=== PATIENT | female | born 1945 | race Caucasian/White ===

== ENCOUNTER 2016-09-23 11:43 | Observation (INO) ==
[2016-09-23] MEDS ORDERED: Ondansetron 4 MG/2 ML VIAL IVP PRN (14:22)
[2016-09-23] MEDS ORDERED: Polyethylene Glycol 3350 255 GM POWDER PO ONE (14:28)
[2016-09-23] MEDS ORDERED: 0.9 % Sodium Chloride 1,000 ML IVC SCH (14:30)
[2016-09-23] MEDS ORDERED: *HR* Dextrose 50 % in Water (Syg) 50 ML SYRINGE IVP PRN (14:30)
[2016-09-23] MEDS ORDERED: D5% in Water 1,000 ML IVC PRN (14:30)
[2016-09-23] MEDS ORDERED: Dextrose Gel 15 GM PO PRN ×2 (14:30)
[2016-09-23 15:17] LABS: Basophils # 0.1 K/mcL (0.0-0.2); Basophils % 0.6 %; Eosinophils # 0.3 K/mcL (0.0-0.6); Eosinophils % 2.3 %; Hematocrit 42.5 % (35.3-44.9); Hemoglobin 13.7 g/dL (11.5-15.4); INR 1.1; Immature Granulocytes % 0.7 % (0-4); Lymphocytes # 3.9 K/mcL (0.6-4.6); Lymphocytes % 32.3 %; Mean Corpuscular HGB Conc 32.2 g/dL (31.6-35.5); Mean Corpuscular Volume 89.9 fL (83.0-100.0); Mean Platelet Volume 9.8 fL (9.4-12.4); Monocytes # 0.9 K/mcL (0.0-1.3); Monocytes % 7.5 %; Neutrophils # 6.9 K/mcL (1.6-8.9); Platelet Count 381 K/mcL (140-400); Prothrombin Time 11.7 Seconds (9.4-12.1); Red Blood Count 4.73 M/mcL (3.82-4.97); Red Cell Distribution Width 14.8 % (11.5-14.5); Segmented Neutrophils % 56.6 %
[2016-09-23 15:24] LABS: BUN/Creatinine Ratio 16 (6-26); Blood Urea Nitrogen 17 mg/dL (7-20); Calcium 8.1 mg/dL (8.6-10.8); Carbon Dioxide 24 mEq/L (19-29); Chloride 102 mEq/L (98-109); Glucose 54 mg/dL (70-99); Osmolality,Calculated 283 (280-300); Potassium 3.8 mEq/L (3.5-4.5); Sodium 137 mEq/L (136-145); eGFR For African Americans > 60 (> 60); eGFR For Non-African Americans 52 (> 60)
--- NOTE | 2016-09-23 16:19 | General Surg History&Physical ---
Date of Encounter: 09/23/16 Time of Encounter: 16:17 Assessment and Plan (1) History of colon polyps Current Visit: Yes Status: Acute The assessment and plan as outlined above was discussed with the patient and/or family members who expressed understanding and agreement. All questions were answered. Plan for colonoscopy 09/24/[address] Wyman Clear liquids today NPO after midnight IV fluids Bowel prep with Miralax and Gatorade Patient requires inpatient admission due to multiple comorbidities and inability to complete colon prep at home History of Present Illness Chief complaint: History of colon polyps HPI: Ms. Pradhan is a 71 year old female who was seen and evaluated by Dr. Wyman in the outpatient surgical office. She had a colonoscopy 5 years ago and did have polyps removed at that time. She describes her abdominal pain as a "gassy discomfort" for many years. She denies any diarrhea of constipation. She typically has a bowel movement 1-2 times per day without rectal bleeding. Denies any weight loss or changes in appetite. Past Med Surg Social Fam HX - Past Medical History Source: patient, old records reviewed Medical history: arthritis, cancer, CHF, diabetes, fibromyalgia, GERD, hyperlipidemia, hypertension, thyroid disease, other Psychiatric history: depression - Past Surgical History Surgical History: appendectomy, cancer surgery, cataract, cholecystectomy, orthopedic, other (Carpel tunnel release left wrist, achilles tendon repair), thyroidectomy (right thyroid lobectomy), other (bladder surgery with ureteral polyp, tubal ligation, colonoscopy with polypectomy, heart cath.) - Social History Smoking Status: Former smoker Smokeless Tobacco Status: No Alcohol use: none Drug use: none - Family History Mother Adopted: No Family Member Ethnicity: Non- Living Status: Age at : 89 Cause of : complications from an RI Hx Family Cardiac Disorders: Yes Hx Family Respiratory Disorders: No Hx Family Cancer: No Hx Family GI Disorders: Yes Hx Family Genitourinary Disorders: No Hx Family Endocrine Disorder: Yes Hx Family Musculoskeletal Disorders: Yes (arthritis) Hx Family Neuromuscular Disorders: No Hx Family Neurologic Disorders: No Hx Family HEENT Disorders: No Hx Family Autoimmune Disorders: No Hx Family Reproductive Disorders: No Hx Family Psychosocial Disorders: No Hx Family Medical Disorders: No Medications and Allergies Cholecalciferol (D-3) [Vitamin D] 1,000 unit PO DAILY 09/23/16 [History] Dexlansoprazole [Dexilant] 60 mg PO DAILY 09/23/16 [History] Duloxetine [Cymbalta] 30 mg PO DAILY 09/23/16 [History] Fenofibrate Nanocrystallized [Tricor] 145 mg PO DAILY 09/23/16 [History] Folic Acid 0.8 mg PO DAILY 09/23/16 [History] Furosemide [Lasix] 40 mg PO DAILY 09/23/16 [History] Gabapentin [Neurontin] 600 mg PO TID 09/23/16 [History] GlipiZIDE [Glipizide] 10 mg PO DAILY 09/23/16 [History] Insulin Glargine,Hum.rec.anlog [Lantus Solostar] 0 unit SQ AD 09/23/16 [History] Levothyroxine [Synthroid] 175 mcg PO DAILY 09/23/16 [History] Losartan Potassium [Cozaar] 25 mg PO DAILY 09/23/16 [History] Meloxicam 7.5 mg PO BID 09/23/16 [History] Methocarbamol [Robaxin] 500 mg PO Q4H PRN 09/23/16 [History] Methotrexate 7.5 mg IJ QWEEK 09/23/16 [History] Metoprolol XL (24 HR) Succ [Toprol XL] 25 mg PO DAILY 09/23/16 [History] Nitroglycerin [Nitrostat] 0.4 mg SL AD PRN 09/23/16 [History] Pantoprazole Sodium 40 mg PO DAILY 09/23/16 [History] Potassium Chloride [Klor-Con 10] 10 meq PO DAILY 09/23/16 [History] Secukinumab [Cosentyx Syringe] 150 mg SQ QMONTH 09/23/16 [History] Silver Sulfadiazine [Silvadene] 1 appl TP DAILY 09/23/16 [History] Tizanidine HCl 4 mg PO TID PRN 09/23/16 [History] Venlafaxine [Effexor] 75 mg PO DAILY 09/23/16 [History] Vitamin E 100 unit PO DAILY 09/23/16 [History] Allergies acetaminophen [From Darvocet-N 100] Allergy (Mild, Verified 11/27/15 13:16) AMS propoxyphene [From Darvocet-N 100] Allergy (Mild, Verified 11/27/15 13:16) AMS pentazocine [From Talwin] Allergy (Verified 11/27/15 13:16) Headache hydrocodone [From Vicodin] Adverse Reaction (Mild, Verified 11/27/15 13:16) Headache Review of Systems All systems PM: reviewed and no additional remarkable complaints except as stated All systems PM: A 10-system review of systems was performed and is negative for pertinent findings except as documented above in the HPI. General Surgery Exam Initial Vital Signs Temp Pulse Resp BP Pulse Ox 97.9 F 99 18 145/85 95 09/23/16 15:49 09/23/16 15:49 09/23/16 15:49 09/23/16 15:49 09/23/16 15:49 - General physical appearance well developed, well nourished, no distress, chronically ill, obese - Eyes normal ocular movement - ENT normal mucosa, atraumatic, normocephalic - Neck trachea midline - Respiratory normal respiratory effort, clear to auscultation - Cardiovascular Cardiovascular exam: Present: RRR - Abdomen Abdomen general surgery: Present: bowel sounds present, soft, non tender - Integumentary Integumentary general surgery: Present: warm and dry - Neurologic Present: CN 2-12 grossly intact - Psychiatric Psychiatric general surgery: Present: A&Ox3 Results - Labs 09/23/16 14:50 09/23/16 14:50 Abnormal lab results WBC 12.1 K/mcL (4.3-11.1) H 09/23/16 14:50 RDW 14.8 % (11.5-14.5) H 09/23/16 14:50 Est GFR (Non-Af Amer) 52 (> 60) L 09/23/16 14:50 Glucose 54 mg/dL (70-99) L 09/23/16 14:50 Calcium 8.1 mg/dL (8.6-10.8) L 09/23/16 14:50 Diabetes panel 09/23/16 Range/Units 14:50 Sodium 137 (136-145) mEq/L Potassium 3.8 (3.5-4.5) mEq/L Chloride 102 (98-109) mEq/L Carbon Dioxide 24 (19-29) mEq/L BUN 17 (7-20) mg/dL Creatinine 1.05 (0.57-1.11) mg/dL Glucose 54 L (70-99) mg/dL Calcium 8.1 L (8.6-10.8) mg/dL Calcium panel 09/23/16 Range/Units 14:50 Calcium 8.1 L (8.6-10.8) mg/dL Pituitary panel 09/23/16 Range/Units 14:50 Sodium 137 (136-145) mEq/L Potassium 3.8 (3.5-4.5) mEq/L Chloride 102 (98-109) mEq/L Carbon Dioxide 24 (19-29) mEq/L BUN 17 (7-20) mg/dL Creatinine 1.05 (0.57-1.11) mg/dL Glucose 54 L (70-99) mg/dL Calcium 8.1 L (8.6-10.8) mg/dL Adrenal panel 09/23/16 Range/Units 14:50 Sodium 137 (136-145) mEq/L Potassium 3.8 (3.5-4.5) mEq/L Chloride 102 (98-109) mEq/L Carbon Dioxide 24 (19-29) mEq/L BUN 17 (7-20) mg/dL Creatinine 1.05 (0.57-1.11) mg/dL Glucose 54 L (70-99) mg/dL Calcium 8.1 L (8.6-10.8) mg/dL All other labs normal. - Attending Attestation I examined this patient and my medical decision-making was reviewed with the ALUM OPERATOR/PA/Advanced Practice Nurse/Resident Physician. I agree with the documented findings, disposition and treatment plan as described except to the extent set forth below.
[2016-09-23] MEDS: Insulin LISPRO 300 UNITS/3 ML VIAL SQ SCH (16:30)
[2016-09-23] MEDS ORDERED: Insulin LISPRO 300 UNITS/3 ML VIAL SQ SCH (21:00)
[2016-09-23] MEDS ORDERED: *HR* OxyCODONE/APAP 10/325 TABLET PO PRN (22:04)
[2016-09-24] MEDS: Insulin LISPRO 300 UNITS/3 ML VIAL SQ SCH ×2 (07:48→12:04)
[2016-09-24] MEDS ORDERED: Metoprolol XL (24 HR) Succ 25 MG TAB.ER.24H PO SCH (09:00)
[2016-09-24] MEDS ORDERED: Venlafaxine XR (24 HR) 75 MG CAP.ER.24H PO SCH (09:00)
--- NOTE | 2016-09-24 13:27 | Anesthesia Evaluation PreOp ---
Date of Encounter: 09/24/16 Time of Encounter: 13:25 - Past History Planned Operation: Colonoscopy Cardiac History: CHF (tx w/ Lasix), HTN (maintained on Cozzaar, Metoprolol), Hyperlipidemia (maintained on FenoFibrate) Pulmonary History: Former smoker [employer] History: Other (Fibromyalgia maintained on Gabapenintin. Anxiety/Depression maintained on Cymbalta, Effexory) Other Medical History: Diabetes Type II (maintained on Glipizide, Insulin), Thyroid (maintained on Levothyroxune), GERD (IBS tx w/ Dexilant, Pantoprazole), Other (MO/BMI - 53. RA maintianed on Methotrexate) Anesthesia History: No Prior Anesthetic Complications, Past Anesthesia (Shireen, Cancer surgery, Cataracts, CTR, Achilles tendon repair, R-thyroid lobectomy, Bladder surgeruy, BTL, Colonsocopy) Alcohol Use: none Drug use: none Medications and Allergies Cholecalciferol (D-3) [Vitamin D] 1,000 unit PO DAILY 09/23/16 [History] Dexlansoprazole [Dexilant] 60 mg PO DAILY 09/23/16 [History] Duloxetine [Cymbalta] 30 mg PO DAILY 09/23/16 [History] Fenofibrate Nanocrystallized [Tricor] 145 mg PO DAILY 09/23/16 [History] Folic Acid 0.8 mg PO DAILY 09/23/16 [History] Furosemide [Lasix] 40 mg PO DAILY 09/23/16 [History] Gabapentin [Neurontin] 600 mg PO TID 09/23/16 [History] GlipiZIDE [Glipizide] 10 mg PO DAILY 09/23/16 [History] Insulin Glargine,Hum.rec.anlog [Lantus Solostar] 0 unit SQ AD 09/23/16 [History] Levothyroxine [Synthroid] 175 mcg PO DAILY 09/23/16 [History] Losartan Potassium [Cozaar] 25 mg PO DAILY 09/23/16 [History] Meloxicam 7.5 mg PO BID 09/23/16 [History] Methocarbamol [Robaxin] 500 mg PO Q4H PRN 09/23/16 [History] Methotrexate 7.5 mg IJ QWEEK 09/23/16 [History] Metoprolol XL (24 HR) Succ [Toprol XL] 25 mg PO DAILY 09/23/16 [History] Nitroglycerin [Nitrostat] 0.4 mg SL AD PRN 09/23/16 [History] Pantoprazole Sodium 40 mg PO DAILY 09/23/16 [History] Potassium Chloride [Klor-Con 10] 10 meq PO DAILY 09/23/16 [History] Secukinumab [Cosentyx Syringe] 150 mg SQ QMONTH 09/23/16 [History] Silver Sulfadiazine [Silvadene] 1 appl TP DAILY 09/23/16 [History] Tizanidine HCl 4 mg PO TID PRN 09/23/16 [History] Venlafaxine [Effexor] 75 mg PO DAILY 09/23/16 [History] Vitamin E 100 unit PO DAILY 09/23/16 [History] Allergies acetaminophen [From Darvocet-N 100] Allergy (Mild, Verified 11/27/15 13:16) AMS propoxyphene [From Darvocet-N 100] Allergy (Mild, Verified 11/27/15 13:16) AMS pentazocine [From Talwin] Allergy (Verified 11/27/15 13:16) Headache hydrocodone [From Vicodin] Adverse Reaction (Mild, Verified 11/27/15 13:16) Headache - Meds/Allergy Pre-op Review Medications Reviewed: Yes Allergies Reviewed: Yes Beta Blockers on Current Med List: Yes (Metoprolol) If Beta Blockers taken, Date/Time (Last Dose taken): 09/24/16 @ 0915 Anesthesia Results - Labs 09/23/16 14:50 09/23/16 14:50 Laboratory Tests 09/23/16 09/23/16 14:50 14:50 PT 11.7 INR 1.1 Est GFR (Non-Af Amer) 52 L Laboratory Results Anesthesia Exam Vital Signs Temp Pulse Resp BP Pulse Ox 09/24/16 11:34 98.2 F 86 16 116/80 95 09/24/16 07:13 98.2 F 97 16 140/77 92 09/24/16 05:04 97.7 F 54 16 132/74 98 09/24/16 04:40 98.7 F 96 16 118/59 92 09/24/16 01:43 98.1 F 94 16 116/64 92 09/23/16 21:02 98.3 F 93 16 106/69 93 09/23/16 15:49 97.9 F 99 18 145/85 95 Intake and Output 09/23/16 09/24/16 09/24/16 23:59 07:59 15:59 Intake Total 120 / 120 Balance 120 / 120 Intake: Oral 120 / 120 Other: Meal Dinner Percent of Meal Consumed 10% # Bowel Movements 1 Blood Glucose* 177 127 102 Vital Signs Intake and Output - HEENT Pupil (Motor): Pupils equal, EOMI Mallampati: II Teeth: Edentulous Oral Opening: Greater than 3 - [employer] LOC: Oriented [employer] Motor: Normal RUE, Normal LUE, Normal RLE, Normal LLE, Normal Face [employer] Sensory: Normal: RUE, LUE, RLE, LLE, Face - Cardiac Rhythm: Regular Murmur: None - Pulmonary Breath Sounds: bilateral Clear Respiratory Effort: Symmetrical Anesthesia Assess/Plan ASA Score: 4 (Super MO/BMI = 53, HTN, Chol, DM) Modified Rudolph Scale for Level of Consciousness: Cooperative, oriented, and tranquil Anesthetic Plan: MAC Autologous Blood: Yes Monitoring Plan: Standard Monitors Recovery Plan: Other Anes Supervising Prov Stmt: Pt seen/evaluated, VSSA dn pt ahs met pedro pablo fot discharge to home. Reji Hall MD
--- NOTE | 2016-09-24 14:41 | Event Note ---
Date of Encounter: 09/24/16 Time of Encounter: 14:40 Colonoscopy performed. Polyp noted in the rectum and hepatic flexure. Removed. Will discharge home and contact patient once biopsy result returns.
[2016-09-24 15:10] VITALS: BP 146/79
== END 2016-09-24 16:06 | disposition home or self-care (01) ==
LOC: SAMDAY 11:43 → 3NENU 11:43
PROVIDERS: ADMIT Surgery; ATTEND Surgery

== ENCOUNTER 2020-12-19 22:55 | Inpatient (IN) ==
[2020-12-20] MEDS ORDERED: Ondansetron ODT 4 MG TAB.RAPDIS SL PRN (01:17)
[2020-12-20] MEDS ORDERED: Naloxone 0.4 MG/ML INJ IVP PRN (01:17)
[2020-12-20] MEDS ORDERED: Ipratropium/Albuterol Neb 3 ML IH PRN (01:20)
[2020-12-20 01:45] LABS: Basophils # 0.1 K/mcL (0.0-0.2); Basophils % 0.3 %; Eosinophils % 0.1 %; Hematocrit 41.8 % (35.3-44.9); Immature Granulocytes % 0.4 % (0-4); Lymphocytes # 1.6 K/mcL (0.6-4.6); Lymphocytes % 10.2 %; Mean Corpuscular HGB Conc 31.1 g/dL (31.6-35.5); Mean Corpuscular Hemoglobin 24.5 pg (28.0-33.3); Mean Corpuscular Volume 78.9 fL (83.0-100.0); Mean Platelet Volume 10.4 fL (9.4-12.4); Monocytes # 0.6 K/mcL (0.0-1.3); Monocytes % 3.8 %; Neutrophils # 13.4 K/mcL (1.6-8.9); Platelet Count 310 K/mcL (140-400); Red Cell Distribution Width 16.1 % (11.5-14.5); Segmented Neutrophils % 85.2 %; White Blood Count 15.7 K/mcL (4.3-11.1)
[2020-12-20 01:51] LABS: INR 1.2; Prothrombin Time 13.7 Seconds (9.4-12.1)
[2020-12-20] MEDS: 0.9 % Sodium Chloride 1,000 ML IVC SCH ×2 (01:55→12:20)
[2020-12-20 02:05] LABS: Alanine Aminotransferase 11 Units/L (7-52); Albumin 3.6 g/dL (3.5-5.7); Albumin/Globulin Ratio 1.1 (1.1-2.2); Alkaline Phosphatase 115 Units/L (34-104); Aspartate Amino Transferase 14 Units/L (13-39); BUN/Creatinine Ratio 13 (6-26); Bilirubin,Total 0.5 mg/dL (0.3-1.0); Blood Urea Nitrogen 14 mg/dL (8-23); Calcium 7.9 mg/dL (8.6-10.3); Carbon Dioxide 27 mEq/L (23-29); Chloride 99 mEq/L (98-107); Globulin 3.3 g/dL (2.4-3.5); Glucose 178 mg/dL (70-105); Magnesium 1.8 mg/dL (1.6-2.6); Osmolality,Calculated 287 (280-300); Potassium 3.6 mEq/L (3.5-5.1); Sodium 136 mEq/L (136-145); Total Protein 6.9 g/dL (6.4-8.9); eGFR For African Americans > 60 (> 60); eGFR For Non-African Americans 50 (> 60)
[2020-12-20 02:18] LABS: Thyroid Stimulating Hormone 2.908 mcIU/mL (0.340-5.600)
[2020-12-20] MEDS ORDERED: *HR* Dextrose 50 % in Water (Vial) 50 ML VIAL IVP PRN (02:50)
[2020-12-20] MEDS ORDERED: D5% in Water 1,000 ML IVC PRN (02:50)
[2020-12-20] MEDS ORDERED: Dextrose Gel 15 GM/37.5 ML TUBE PO PRN ×2 (02:50)
[2020-12-20 03:41] LABS: Bacteria,Urine Many per hpf (None-Few); Bilirubin,Urine Negative (Negative); Blood,Urine Large (Negative); Clarity,Urine Clear (Clear); Color,Urine Yellow (Yellow); Glucose,Urine (UA) Normal (Normal); Ketones,Urine Trace mg/dL (Negative); Leukocyte Esterase,Urine Moderate (Negative); Mucus,Urine Many per lpf (None-Few); Nitrite,Urine Positive (Negative); Protein,Urine 100 mg/dL (Neg-Trace); RBC,Urine 50-100 per hpf (0-3); Specific Gravity,Urine > 1.030 (1.010-1.025); Squamous Epithelial Cell,Urine Few per hpf (None-Few); Urobilinogen,Urine Normal (Normal); WBC,Urine TNTC per hpf (0-3)
[2020-12-20] MEDS: Insulin LISPRO 300 UNITS/3 ML VIAL SUBQ SCH ×4 (04:06→17:40)
[2020-12-20] MEDS ORDERED: CefTRIAXone 1,000 MG VIAL ONE (07:39)
[2020-12-20] MEDS: cefTRIAXone 1,000 MG in 0.9 % Sodium Chloride Mini Bag 100 ML IVPB SCH (07:41)
[2020-12-20] MEDS: *HR* Enoxaparin 40 MG/0.4 ML SYRINGE SQ SCH (07:42)
[2020-12-21 02:36] LABS: Basophils # 0.1 K/mcL (0.0-0.2); Basophils % 0.7 %; Eosinophils # 0.4 K/mcL (0.0-0.6); Eosinophils % 3.5 %; Hematocrit 37.3 % (35.3-44.9); Hemoglobin 11.5 g/dL (11.5-15.4); Immature Granulocytes % 0.2 % (0-4); Lymphocytes # 3.2 K/mcL (0.6-4.6); Lymphocytes % 28.4 %; Mean Corpuscular HGB Conc 30.8 g/dL (31.6-35.5); Mean Corpuscular Hemoglobin 25.2 pg (28.0-33.3); Mean Corpuscular Volume 81.8 fL (83.0-100.0); Mean Platelet Volume 10.7 fL (9.4-12.4); Monocytes # 0.9 K/mcL (0.0-1.3); Monocytes % 8.5 %; Neutrophils # 6.5 K/mcL (1.6-8.9); Platelet Count 258 K/mcL (140-400); Red Blood Count 4.56 M/mcL (3.82-4.97); Red Cell Distribution Width 16.9 % (11.5-14.5); Segmented Neutrophils % 58.7 %; White Blood Count 11.1 K/mcL (4.3-11.1)
[2020-12-21 02:57] LABS: BUN/Creatinine Ratio 15 (6-26); Blood Urea Nitrogen 14 mg/dL (8-23); Calcium 7.2 mg/dL (8.6-10.3); Carbon Dioxide 28 mEq/L (23-29); Chloride 102 mEq/L (98-107); Glucose 219 mg/dL (70-105); Osmolality,Calculated 293 (280-300); Potassium 3.3 mEq/L (3.5-5.1); Sodium 138 mEq/L (136-145); eGFR For African Americans > 60 (> 60); eGFR For Non-African Americans 58 (> 60)
[2020-12-21] MEDS: cefTRIAXone 1,000 MG in 0.9 % Sodium Chloride Mini Bag 100 ML IVPB SCH (08:23)
[2020-12-21] MEDS: *HR* Enoxaparin 40 MG/0.4 ML SYRINGE SQ SCH (08:24)
[2020-12-21] MEDS: Cholecalciferol (D-3) 1,000 UNIT (25MCG) TABLET PO SCH (08:24)
[2020-12-21] MEDS: Metoprolol XL (24 HR) Succ 25 MG TAB.ER.24H PO SCH (08:24)
[2020-12-21] MEDS: Folic Acid 1 MG TABLET PO SCH (08:24)
[2020-12-21] MEDS: Insulin LISPRO 300 UNITS/3 ML VIAL SUBQ SCH ×3 (08:28→16:31)
[2020-12-22 00:58] LABS: Basophils # 0.1 K/mcL (0.0-0.2); Basophils % 0.9 %; Eosinophils # 0.4 K/mcL (0.0-0.6); Eosinophils % 4.2 %; Hematocrit 39.1 % (35.3-44.9); Hemoglobin 11.6 g/dL (11.5-15.4); Immature Granulocytes % 0.4 % (0-4); Lymphocytes # 2.3 K/mcL (0.6-4.6); Lymphocytes % 22.2 %; Mean Corpuscular HGB Conc 29.7 g/dL (31.6-35.5); Mean Corpuscular Hemoglobin 24.5 pg (28.0-33.3); Mean Corpuscular Volume 82.5 fL (83.0-100.0); Mean Platelet Volume 10.7 fL (9.4-12.4); Monocytes # 0.8 K/mcL (0.0-1.3); Monocytes % 7.3 %; Neutrophils # 6.8 K/mcL (1.6-8.9); Platelet Count 262 K/mcL (140-400); Red Blood Count 4.74 M/mcL (3.82-4.97); Red Cell Distribution Width 16.5 % (11.5-14.5); White Blood Count 10.5 K/mcL (4.3-11.1)
[2020-12-22 01:18] LABS: BUN/Creatinine Ratio 14 (6-26); Blood Urea Nitrogen 15 mg/dL (8-23); Calcium 7.3 mg/dL (8.6-10.3); Carbon Dioxide 28 mEq/L (23-29); Chloride 102 mEq/L (98-107); Glucose 290 mg/dL (70-105); Osmolality,Calculated 295 (280-300); Sodium 137 mEq/L (136-145); eGFR For African Americans > 60 (> 60); eGFR For Non-African Americans 51 (> 60)
[2020-12-22] MEDS: Insulin DETEMIR 100 UNIT/ML X5UNITS SUBQ SCH ×3 (06:25→20:14)
[2020-12-22] MEDS: Cholecalciferol (D-3) 1,000 UNIT (25MCG) TABLET PO SCH (09:28)
[2020-12-22] MEDS: Folic Acid 1 MG TABLET PO SCH (09:28)
[2020-12-22] MEDS: cefTRIAXone 1,000 MG in 0.9 % Sodium Chloride Mini Bag 100 ML IVPB SCH (09:28)
[2020-12-22] MEDS: Metoprolol XL (24 HR) Succ 25 MG TAB.ER.24H PO SCH (09:28)
[2020-12-22] MEDS: *HR* Enoxaparin 40 MG/0.4 ML SYRINGE SQ SCH (09:29)
[2020-12-22] MEDS: Insulin LISPRO 300 UNITS/3 ML VIAL SUBQ SCH ×3 (09:30→18:13)
[2020-12-22] MEDS: cephALEXin 500 MG CAPSULE PO SCH (20:14)
[2020-12-23] MEDS: Cholecalciferol (D-3) 1,000 UNIT (25MCG) TABLET PO SCH (08:06)
[2020-12-23] MEDS: cephALEXin 500 MG CAPSULE PO SCH (08:06)
[2020-12-23] MEDS: *HR* Enoxaparin 40 MG/0.4 ML SYRINGE SQ SCH (08:06)
[2020-12-23] MEDS: Folic Acid 1 MG TABLET PO SCH (08:07)
[2020-12-23] MEDS: Insulin LISPRO 300 UNITS/3 ML VIAL SUBQ SCH ×2 (08:07→11:27)
[2020-12-23] MEDS: Insulin DETEMIR 100 UNIT/ML X5UNITS SUBQ SCH (08:10)
[2020-12-23] MEDS ORDERED: Metoprolol XL (24 HR) Succ 25 MG TAB.ER.24H PO SCH (09:00)
[2020-12-23 14:02] VITALS: BP 150/76; PULSE 86; TEMP 97.7; O2SAT 94
== END 2020-12-23 15:38 | disposition home health service (06) | DRG 871 ==
LOC: 3ANU
PROVIDERS: ADMIT Internal Medicine; ATTEND Internal Medicine

== ENCOUNTER 2021-08-26 10:41 | Inpatient (IN) ==
[2021-08-26] MEDS ORDERED: 0.9 % Sodium Chloride 1,000 ML IVC ONE (11:26)
[2021-08-26 12:07] LABS: Basophils # 0.1 K/mcL (0.0-0.2); Basophils % 0.5 %; Eosinophils # 0.3 K/mcL (0.0-0.6); Eosinophils % 2.2 %; Hematocrit 43.3 % (35.3-44.9); Hemoglobin 13.5 g/dL (11.5-15.4); Immature Granulocytes % 0.4 % (0-4); Lymphocytes # 2.4 K/mcL (0.6-4.6); Lymphocytes % 18.1 %; Mean Corpuscular HGB Conc 31.2 g/dL (31.6-35.5); Mean Corpuscular Hemoglobin 25.9 pg (28.0-33.3); Mean Corpuscular Volume 83.1 fL (83.0-100.0); Mean Platelet Volume 10.7 fL (9.4-12.4); Monocytes # 0.8 K/mcL (0.0-1.3); Monocytes % 6.2 %; Neutrophils # 9.4 K/mcL (1.6-8.9); Platelet Count 301 K/mcL (140-400); Red Blood Count 5.21 M/mcL (3.82-4.97); Red Cell Distribution Width 16.1 % (11.5-14.5); Segmented Neutrophils % 72.6 %
[2021-08-26 12:12] LABS: Prothrombin Time 11.6 Seconds (9.4-12.1)
[2021-08-26 12:15] LABS: Activated Partial Thrombo Time 31.2 Seconds (26.0-36.0)
[2021-08-26 12:32] LABS: Alanine Aminotransferase 21 Units/L (7-52); Albumin 3.4 g/dL (3.5-5.7); Alkaline Phosphatase 158 Units/L (34-104); Aspartate Amino Transferase 15 Units/L (13-39); BUN/Creatinine Ratio 21 (6-26); Bilirubin,Total 0.5 mg/dL (0.3-1.0); Blood Urea Nitrogen 20 mg/dL (8-23); Calcium 8.5 mg/dL (8.6-10.3); Carbon Dioxide 29 mEq/L (23-29); Chloride 98 mEq/L (98-107); Globulin 3.5 g/dL (2.4-3.5); Glucose 359 mg/dL (70-105); Lipase 39 Units/L (11-82); Osmolality,Calculated 299 (280-300); Potassium 4.8 mEq/L (3.5-5.1); Sodium 136 mEq/L (136-145); Total Protein 6.9 g/dL (6.4-8.9); Troponin I < 0.03 ng/mL (< 0.04); eGFR For African Americans > 60 (> 60); eGFR For Non-African Americans 57 (> 60)
[2021-08-26] MEDS ORDERED: ISOVUE-370 100 ML INFUS..BTL IV ONE (12:45)
[2021-08-26] MEDS ORDERED: Naloxone 0.4 MG/ML INJ IVP PRN (14:29)
[2021-08-26] MEDS ORDERED: Ondansetron 4 MG/2 ML VIAL IVP PRN (14:29)
[2021-08-26] MEDS: Pantoprazole 40 MG VIAL IVP SCH (15:48)
[2021-08-26] MEDS ORDERED: Dextrose 4 GM Chewable Tablets PO PRN ×2 (16:18)
[2021-08-26] MEDS ORDERED: *HR* Dextrose 50 % in Water (Syg) 50 ML SYRINGE IVP PRN (16:18)
[2021-08-26] MEDS ORDERED: D5% in Water 1,000 ML IVC PRN (16:18)
[2021-08-26] MEDS ORDERED: Insulin LISPRO 300 UNITS/3 ML VIAL SUBQ SCH (16:30)
[2021-08-26 16:58] LABS: Estimated Average Glucose 252 mg/dl; Hemoglobin A1C 10.4 %
[2021-08-26] MEDS ORDERED: SODIUM CHLORIDE/NAHCO3/KCL/PEG 4,000 ML SOLN.RECON PO ONE (17:00)
[2021-08-26] MEDS: Insulin DETEMIR 100 UNIT/ML X5UNITS SUBQ SCH (21:45)
[2021-08-26] MEDS: Pregabalin 75 MG CAPSULE PO SCH (21:45)
[2021-08-27 06:08] LABS: Basophils # 0.1 K/mcL (0.0-0.2); Basophils % 0.6 %; Eosinophils # 0.5 K/mcL (0.0-0.6); Eosinophils % 3.6 %; Hematocrit 39.6 % (35.3-44.9); Hemoglobin 12.2 g/dL (11.5-15.4); Immature Granulocytes % 0.4 % (0-4); Lymphocytes # 3.8 K/mcL (0.6-4.6); Mean Corpuscular HGB Conc 30.8 g/dL (31.6-35.5); Mean Corpuscular Hemoglobin 25.8 pg (28.0-33.3); Mean Corpuscular Volume 83.7 fL (83.0-100.0); Mean Platelet Volume 10.5 fL (9.4-12.4); Monocytes # 1.1 K/mcL (0.0-1.3); Monocytes % 8.3 %; Neutrophils # 7.2 K/mcL (1.6-8.9); Platelet Count 304 K/mcL (140-400); Red Blood Count 4.73 M/mcL (3.82-4.97); Red Cell Distribution Width 16.6 % (11.5-14.5); Segmented Neutrophils % 57.1 %; White Blood Count 12.6 K/mcL (4.3-11.1)
[2021-08-27 06:25] LABS: BUN/Creatinine Ratio 17 (6-26); Blood Urea Nitrogen 15 mg/dL (8-23); Calcium 7.9 mg/dL (8.6-10.3); Carbon Dioxide 27 mEq/L (23-29); Chloride 100 mEq/L (98-107); Potassium 3.7 mEq/L (3.5-5.1); Sodium 137 mEq/L (136-145); eGFR For African Americans > 60 (> 60); eGFR For Non-African Americans > 60 (> 60)
[2021-08-27 08:53] LABS: Glucose 181 mg/dL (70-105); Osmolality,Calculated 289 (280-300)
[2021-08-27] MEDS: Pregabalin 75 MG CAPSULE PO SCH ×3 (10:15→21:10)
[2021-08-27] MEDS: Metoprolol XL (24 HR) Succ 50 MG TAB.ER.24H PO SCH (10:15)
[2021-08-27] MEDS: Insulin DETEMIR 100 UNIT/ML X5UNITS SUBQ SCH ×2 (10:17→21:10)
[2021-08-27] MEDS: Calcium Gluconate 1gm/50mL 1 GM/50 ML BAG IVPB SCH ×2 (10:22→12:30)
[2021-08-27] MEDS: Pantoprazole 40 MG VIAL IVP SCH (10:22)
[2021-08-27] MEDS ORDERED: Insulin LISPRO 300 UNITS/3 ML VIAL SUBQ SCH ×2 (12:00→21:00)
[2021-08-27] MEDS: Insulin LISPRO 300 UNITS/3 ML VIAL SUBQ SCH (17:04)
[2021-08-28 02:10] LABS: Hematocrit 35.7 % (35.3-44.9); Hemoglobin 11.3 g/dL (11.5-15.4); Mean Corpuscular HGB Conc 31.7 g/dL (31.6-35.5); Mean Corpuscular Hemoglobin 26.8 pg (28.0-33.3); Mean Corpuscular Volume 84.6 fL (83.0-100.0); Mean Platelet Volume 11.1 fL (9.4-12.4); Platelet Count 304 K/mcL (140-400); Red Blood Count 4.22 M/mcL (3.82-4.97); Red Cell Distribution Width 16.7 % (11.5-14.5); White Blood Count 11.9 K/mcL (4.3-11.1)
[2021-08-28 02:41] LABS: Calcium 7.7 mg/dL (8.6-10.3); Magnesium 1.8 mg/dL (1.6-2.6); Phosphorous 5.3 mg/dL (2.7-4.5); Potassium 4.4 mEq/L (3.5-5.1)
[2021-08-28 03:01] LABS: Folate 19.4 ng/mL (3.0-16.0)
[2021-08-28] MEDS ORDERED: Iron Sucrose Complex 400 MG in 0.9 % Sodium Chloride 250 ML IVPB ONE (06:39)
[2021-08-28] MEDS ORDERED: 0.9 % Sodium Chloride 1,000 ML IVC ONE (06:40)
[2021-08-28] MEDS: Calcium Gluconate 1gm/50mL 1 GM/50 ML BAG IVPB SCH ×2 (07:37→13:44)
[2021-08-28] MEDS: Insulin LISPRO 300 UNITS/3 ML VIAL SUBQ SCH ×2 (07:45→12:37)
[2021-08-28] MEDS: Metoprolol XL (24 HR) Succ 50 MG TAB.ER.24H PO SCH (08:41)
[2021-08-28] MEDS: Pregabalin 75 MG CAPSULE PO SCH (08:41)
[2021-08-28] MEDS: Insulin DETEMIR 100 UNIT/ML X5UNITS SUBQ SCH (08:52)
[2021-08-28] MEDS ORDERED: Cyanocobalamin (B-12) 1,000 MCG TABLET PO SCH (09:00)
[2021-08-28] MEDS: Pantoprazole 40 MG VIAL IVP SCH (09:00)
[2021-08-28 10:33] LABS: Calcium 7.7 mg/dL (8.6-10.3); Potassium 4.5 mEq/L (3.5-5.1)
[2021-08-28 10:45] VITALS: BP 132/65
[2021-08-28] MEDS ORDERED: Calcium Gluconate 1gm/50mL 1 GM/50 ML BAG IVPB SCH (11:30)
[2021-08-28 15:08] VITALS: PULSE 62; TEMP 98.2; O2SAT 95
[2021-08-28] MEDS ORDERED: Pregabalin 75 MG CAPSULE PO SCH (21:00)
== END 2021-08-28 16:03 | disposition home or self-care (01) | DRG 378 ==
LOC: EMEROOARM 10:41 → 3ANU 10:41 → SUATTDRO 14:41 → 3ANU 16:01
PROVIDERS: ADMIT Internal Medicine; ATTEND Internal Medicine

== ENCOUNTER 2021-09-02 11:17 | Observation (INO) ==
[2021-09-02 12:31] LABS: Basophils # 0.1 K/mcL (0.0-0.2); Basophils % 0.6 %; Eosinophils # 0.2 K/mcL (0.0-0.6); Eosinophils % 2.2 %; Hematocrit 38.8 % (35.3-44.9); Immature Granulocytes % 0.6 % (0-4); Lymphocytes # 1.8 K/mcL (0.6-4.6); Lymphocytes % 17.3 %; Mean Corpuscular HGB Conc 30.9 g/dL (31.6-35.5); Mean Corpuscular Hemoglobin 26.1 pg (28.0-33.3); Mean Corpuscular Volume 84.5 fL (83.0-100.0); Mean Platelet Volume 10.8 fL (9.4-12.4); Monocytes # 0.7 K/mcL (0.0-1.3); Monocytes % 6.7 %; Neutrophils # 7.4 K/mcL (1.6-8.9); Platelet Count 276 K/mcL (140-400); Red Blood Count 4.59 M/mcL (3.82-4.97); Red Cell Distribution Width 16.6 % (11.5-14.5); Segmented Neutrophils % 72.6 %; White Blood Count 10.1 K/mcL (4.3-11.1)
[2021-09-02 12:36] LABS: INR 1.1
[2021-09-02 12:39] LABS: Activated Partial Thrombo Time 23.3 Seconds (26.0-36.0)
[2021-09-02 13:08] LABS: Alanine Aminotransferase 10 Units/L (7-52); Albumin 3.7 g/dL (3.5-5.7); Albumin/Globulin Ratio 1.1 (1.1-2.2); Alkaline Phosphatase 130 Units/L (34-104); Aspartate Amino Transferase 12 Units/L (13-39); BUN/Creatinine Ratio 20 (6-26); Bilirubin,Total 0.5 mg/dL (0.3-1.0); Blood Urea Nitrogen 19 mg/dL (8-23); Calcium 8.3 mg/dL (8.6-10.3); Carbon Dioxide 28 mEq/L (23-29); Chloride 97 mEq/L (98-107); Globulin 3.3 g/dL (2.4-3.5); Glucose 355 mg/dL (70-105); Osmolality,Calculated 299 (280-300); Potassium 4.1 mEq/L (3.5-5.1); Sodium 136 mEq/L (136-145); eGFR For African Americans > 60 (> 60); eGFR For Non-African Americans 57 (> 60)
[2021-09-02] MEDS ORDERED: Isovue-370 500 ML BOTTLE IVP ONE (13:36)
[2021-09-02] MEDS ORDERED: Ondansetron 4 MG/2 ML VIAL IVP PRN (16:44)
[2021-09-02] MEDS ORDERED: Naloxone 0.4 MG/ML INJ IVP PRN (16:44)
[2021-09-02] MEDS ORDERED: 0.9 % Sodium Chloride 1,000 ML IVC SCH (16:45)
[2021-09-02] MEDS ORDERED: Dextrose 4 GM Chewable Tablets PO PRN ×4 (16:51→21:20)
[2021-09-02] MEDS ORDERED: D5% in Water 1,000 ML IVC PRN ×2 (16:51→21:20)
[2021-09-02] MEDS ORDERED: *HR* Dextrose 50 % in Water (Syg) 50 ML SYRINGE IVP PRN ×2 (16:51→21:20)
[2021-09-02] MEDS: Pantoprazole 40 MG VIAL IVP SCH (18:20)
[2021-09-02] MEDS: Pregabalin 75 MG CAPSULE PO SCH (20:16)
[2021-09-02] MEDS ORDERED: Insulin LISPRO 300 UNITS/3 ML VIAL SUBQ SCH (21:30)
[2021-09-02 23:02] LABS: Hematocrit 35.8 % (35.3-44.9)
[2021-09-02 23:03] LABS: Hemoglobin 13.8 g/dL (11.5-15.4)
[2021-09-03 02:11] LABS: Hematocrit 35.4 % (35.3-44.9)
[2021-09-03 02:12] LABS: Hemoglobin 11.2 g/dL (11.5-15.4)
[2021-09-03 02:34] LABS: BUN/Creatinine Ratio 16 (6-26); Blood Urea Nitrogen 13 mg/dL (8-23); Calcium 7.7 mg/dL (8.6-10.3); Carbon Dioxide 26 mEq/L (23-29); Chloride 100 mEq/L (98-107); Glucose 298 mg/dL (70-105); Magnesium 1.5 mg/dL (1.6-2.6); Osmolality,Calculated 295 (280-300); Phosphorous 3.6 mg/dL (2.7-4.5); Potassium 3.1 mEq/L (3.5-5.1); Sodium 137 mEq/L (136-145); eGFR For African Americans > 60 (> 60); eGFR For Non-African Americans > 60 (> 60)
[2021-09-03] MEDS: Pantoprazole 40 MG VIAL IVP SCH (06:59)
[2021-09-03] MEDS: Pregabalin 75 MG CAPSULE PO SCH (07:56)
[2021-09-03] MEDS: Insulin LISPRO 300 UNITS/3 ML VIAL SUBQ SCH ×2 (07:57→11:54)
[2021-09-03 08:29] LABS: Hematocrit 36.2 % (35.3-44.9); Hemoglobin 11.6 g/dL (11.5-15.4)
[2021-09-03] MEDS ORDERED: Cholecalciferol (D-3) 1,000 UNIT (25MCG) TABLET PO SCH (09:00)
[2021-09-03] MEDS ORDERED: Metoprolol XL (24 HR) Succ 25 MG TAB.ER.24H PO SCH (09:00)
[2021-09-03] MEDS ORDERED: Loratadine 10 MG TABLET PO SCH (09:00)
[2021-09-03] MEDS ORDERED: Cyanocobalamin (B-12) 1,000 MCG TABLET PO SCH (09:00)
[2021-09-03 09:55] VITALS: TEMP 98
[2021-09-03] MEDS ORDERED: Insulin DETEMIR 100 UNIT/ML X5UNITS SUBQ SCH (11:15)
[2021-09-03 15:05] VITALS: BP 128/70; PULSE 81; O2SAT 95
[2021-09-04 09:45] LABS: Estimated Average Glucose 240 mg/dl
== END 2021-09-03 16:44 | disposition home or self-care (01) ==
LOC: 3BNU 11:17 → EMEROOARM 11:17 → SUATTDRO 17:12 → 3BNU 17:51
PROVIDERS: ADMIT Internal Medicine; ATTEND Registered Nurse